=== PATIENT | male | born 2000 | race Caucasian/White ===

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

== ENCOUNTER 2019-04-10 20:26 | Emergency (ER) | payer OTHER ==
[~2019-04-10] VITALS: Ht 177.8 cm; Wt 72.6 kg
[~2019-04-10 20:26] MED LIST changes: +KETO10TA2 PO
[2019-04-10] MEDS ORDERED: PROVENTIL HFA6.7 GM IH (23:02)
[2019-04-10] MEDS ORDERED: DOLOGEN CAPLET1 EACH PO (23:02)
[2019-04-10] MEDS ORDERED: ZITHROMAX500 MG PO (23:02)
[2019-04-10] MEDS ORDERED: TUSNEL LIQUID178 ML PO (23:02)
== END 2019-04-10 23:13 | disposition home or self-care (01) ==
LOC: ER 20:26
DX: B34.9 Viral infection, unspecified (principal)

== ENCOUNTER 2023-06-07 15:44 | Emergency (ER) | payer OTHER ==
[~2023-06-07] VITALS: Ht 172.7 cm; Wt 63.5 kg
[~2023-06-07 15:44] MED LIST changes: +DOLOGEN CAPLET1 EACH PO; +PROVENTIL HFA6.7 GM IH; +TUSNEL LIQUID178 ML PO; +ZITHROMAX500 MG PO
[2023-06-07] MEDS ORDERED: CETIRIZINE HCL 5 MG/5 ML ML PO ONE (16:30)
[2023-06-07] MEDS ORDERED: KETOROLAC TROMETHAMINE 60 MG VIAL IM ONE (16:30)
[2023-06-07] MEDS ORDERED: DEXAMETHASONE SODIUM PHOSPHATE 4 MG/ML VIAL IM ONE (16:30)
[2023-06-07 16:55] LABS: HEMATOCRIT 41.9 % (39.0-48.0); HEMOGLOBIN 14.7 g/dL (13-16.00); MEAN CELL VOLUME 84.3 fL (80.0-100.00); MEAN CORPUSCULAR HEMOGLOBIN 29.5 pg (27.00-32.0); PLATELET COUNT 212 K/uL (150-450); RED BLOOD COUNT 4.97 M/uL (4.00-6.00); RED CELL DISTRIBUTION WIDTH 12.7 % (11.5-14.5)
[2023-06-07] MEDS ORDERED: SINGULAIR10 MG PO (18:40)
[2023-06-07] MEDS ORDERED: CEFTRIAXONE SODIUM 1,000 MG VIAL IM ONE (18:45)
[2023-06-07] MEDS ORDERED: TUSSIN DM SYRU118 ML PO (18:46)
== END 2023-06-07 19:10 | disposition home or self-care (01) ==
LOC: ER 15:44
PROVIDERS: Nurse Practitioner Family
DX: J00 Acute nasopharyngitis [common cold] (principal); J45.909 Unspecified asthma, uncomplicated; Z20.822 Contact with and (suspected) exposure to COVID-19